=== PATIENT | male | born 1935 | race Caucasian/White ===

== ENCOUNTER 2025-09-18 05:13 | Emergency (ER) | payer MEDICARE, BC ==
[~2025-09-18] VITALS: Ht 180.3 cm; Wt 88.6 kg
[2025-09-18 05:52] VITALS: TEMP 98
[2025-09-18] MEDS ORDERED: acetaminophen 650mg rectal suppository RC STA (07:07)
[2025-09-18 07:45] LABS: MEAN PLATELET VOLUME 7.3 FL (7.4-10.4); RED CELL DISTRIBUTION WIDTH 14.4 % (11.5-14.5)
[2025-09-18 07:53] LABS: CREATININE 1.79 MG/DL (0.60-1.10); TOTAL CARBON DIOXIDE 27.0 MMOL/L (24-32); eCRCL 30 ML/MIN; eGFR 36 ML/MIN
--- NOTE | 2025-09-18 08:19 | Physician Documentation ---
History of Present Illness ~ Chief Complaint: See Chief Complaint Stated Complaint: LEFT SIDE PAIN Time Seen by MD: 07:02 OK to notify your PCP?: Yes Primary Medical Doctor: Amish Stephen Mode of Arrival: EMS HPI 89-year-old male patient with a history of left renal cell carcinoma, coronary artery disease status post CABG who lives alone who is also hard of hearing came to the emergency room left lower lateral ribcage pain particularly make it worse by cough after a fall a week ago. Patient's denies fever or chills. He is also stating that he started coughing up grayish colored sputum. He is concerned about pneumonia as well. There was no difficulty breathing. However his breathing is shallow because of deep breathing causing pain. Tetanus within 5 Years?: No Medication Reconciliation Allergies: Coded Allergies: No Known Allergies (Unverified , 07/24/15) Scheduled Lidocaine (Lidoderm), 2 PATCH TOP DAILY Scheduled PRN Hydrocodone Bit/Acetaminophen 5/325 MG ([place] 5/325 MG), 1 TAB PO Q6H PRN for pain Past Medical History Past Medical History: Coronary Artery Disease Past Surgical History: coronary bypass surgery Lives with: Spouse Lives In: Home Review of Systems ROS As stated above in the HPI, otherwise all systems are reviewed and negative. Physical Exam Vital Signs: Temperature: 98.0, Source: Oral, Heart Rate: 72, Respiratory Rate: 16, BP: 154/68, Pulse Oximetry: 94, Weight: 88.630 Oxygen Flow Rate: 0 Physical Exam Reviewed vital signs and they are well within normal range. Const: Adult female not in acute cardiopulmonary distress Head: Atraumatic Eyes: Normal Conjunctiva ENT: Normal External Ears, Nose and Mouth. Moist mucous membranes Neck: Full range of motion. No meningismus Resp: Clear to auscultation bilaterally. Normal work of breathing I do not see any bruising by the lateral aspect of the lower ribcage left side. Cardio: Regular rate and rhythm, no murmurs. Skin well perfused Abd: Soft, non-tender, non-distended. Normal bowel sounds. No rebound or guarding Skin: No petechiae or rashes. Warm and dry Back: No midline or flank tenderness Ext: No cyanosis, or edema Neuro: Awake and alert Psych: Normal Mood and Affect Progress Results/Orders Results/Orders Orders - OHNKAMRON MD Uni Ribs With Pa Chest (09/18/25 07:07) Completed Orders - OHNKAMRON MD Cbc/Diff (09/18/25 07:07) BMP (09/18/25 07:07) Uni Ribs With Pa Chest (09/18/25 07:07) Acetaminophen 325mg Tablet (Tylenol Tabl (09/18/25 07:40) Lidocaine 5% Patch (Lidoderm 5% Patch) (09/18/25 09:00) Hydrocodone/Apap 5/325mg Tab ([place] 5/32 (09/18/25 09:05) Lidocaine 5% Patch (Lidoderm 5% Patch) (09/18/25 09:20) Vital Signs 09/18/25 09/18/25 09/18/25 09/18/25 05:28 05:52 05:53 07:03 Temp 98.0 98.0 Pulse 79 67 72 Resp 16 12 12 16 B/P (MAP) 183/78 152/76 (101) 154/68 (96) Pulse Ox 96 94 94 O2 Flow Rate 0 09/18/25 09/18/25 09/18/25 08:30 09:49 16:26 Pulse 73 82 Resp 14 16 14 B/P (MAP) 131/68 (89) 142/74 Pulse Ox 97 96 O2 Flow Rate 0 Laboratory Tests Test 09/18/25 07:19 White Blood Count 5.9 Red Blood Count 3.67 L Hemoglobin 12.1 L Hematocrit 35.3 L Mean Corpuscular Volume 96.2 Mean Corpuscular Hemoglobin 32.9 H Mean Corpuscular Hemoglobin Concent 34.2 Red Cell Distribution Width 14.4 Platelet Count 193 Mean Platelet Volume 7.3 L Neutrophils (%) (Auto) 72.0 Lymphocytes (%) (Auto) 13.0 L Monocytes (%) (Auto) 14.3 H Eosinophils (%) (Auto) 0.4 Basophils (%) (Auto) 0.3 Neutrophils # (Auto) 4.2 Lymphocytes # (Auto) 0.8 L Monocytes # (Auto) 0.8 Eosinophils # (Auto) 0.0 Basophils # (Auto) 0.0 CBC Comment Sodium Level 145 Potassium Level 4.2 Chloride Level 109 H Carbon Dioxide Level 27.0 Anion Gap 9 Blood Urea Nitrogen 24 H Creatinine 1.79 H Estimated GFR/1.73 m2 36 BUN/Creatinine Ratio 13.4 Glucose Level 97 Calcium Level 8.1 L Albumin 3.1 L Chemistry Comments Medical Decision Making Additional information obtaine: old records, other Findings During the physical examination, the findings suggestive of acute life-th reatening condition such as JVD, tracheal deviation, acidotic breathing, noisy stridorous breath sounds, pulses paradoxus, muffled heart sounds, unequal breath sounds, abdominal rigidity and rebound tenderness, focal neurological deficits, cool clammy skin, severe hypotension, severe tachycardia or bradycardia are absent. Physical examination is unremarkable except for the patient's having pleuritic chest pain in the left lower ribcage. Chest x-ray shows undisplaced fracture of the left 7th and 8th ribs. No pneumothorax. No infiltrates. CBC WBC 5.9 H and H12.1 and 35.3 platelets 193 sodium 145 potassium 4.2 chloride 109 bicarb 27 BUN 24 creatinine 1.79 and glucose 97. 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 Patient does not have identifiable emergent medical condition that warrants inpatient medical care at this time. The patient is deemed safe for discharge with outpatient follow up. Differential Dx:Considerations: Include: Fracture(s), Pneumothorax, Tracheal injury, Abrasion(s), Contusion(s), Hematoma(s) Departure Disposition: 01 HOME / SELF CARE / HOMELESS Impression: Primary Impression: Left rib fracture Additional Impressions: Fracture of left eleventh rib Fracture of left seventh rib Condition: Stable Discharge Instructions: Rib Fracture, [id number] Additional Instructions: Thank you for coming to our Emergency Department today. Despite the pain take a couple of deep breaths every now and again to inflate the lungs fully. Please ask your nurse or provider if you have questions about your care today and do not leave until all your questions have been answered. Please use any medications given as directed and follow-up with your doctor (or the doctor you were referred to) in the next 1-3 days. Your primary care doctor can help to coordinate outpatient specialty care and provide authorization for specialty referral as needed. If you do not have a primary care doctor you may follow up at a [place] [facility] facility. You may also use motrin and tylenol as needed for fever and/or pain unless instructed otherwise by your provider or nurse. Indications for more urgent follow-up have been discussed, but you may return to the Emergency Department at ANY time for any worrisome or worsening symptoms. County Facilities: County Facilities: [facility]: [facility] [place] Address:[address] [place] [address] [facility]: [place] Address:[address] [place] [address] [facility]: Tele[facility]icine Address:[address] [place] [address] [facility] Address:[address] [place] [address] Registration Billing Pharmacy Referrals [facility] Address:[address] [place] [id number] Referrals: NO PRIMARY CARE PROVIDER (PCP) Prescriptions Hydrocodone Bit/Acetaminophen 5/325 MG ([place] 5/325 MG) 5 Mg/325 Mg Tablet 1 TAB PO Q6H PRN for pain, #24 TAB Prov: KAMRON FORTUNE MD 09/18/25 Lidocaine (Lidoderm) 5 % Adh..patch 2 PATCH TOP DAILY for 30 Days, #60 PATCH 0 Refills may wear up to 12 hours Prov: KAMRON FORTUNE MD 09/18/25 Signature Scribe Signature: x Attestation: KAMRON Frazire MD Sep 18, 2025 08:19
--- NOTE | 2025-09-18 08:22 | RADIOLOGY REPORT ---
EXAM: DI UNI RIBS WITH PA CHEST REASON FOR EXAM: Left lower ribs pain TECHNIQUE: Frontal view of the chest and 2 views of the left ribs are submitted for review. COMPARISON: None FINDINGS: The cardiomediastinal silhouette is mildly enlarged. There are surgical changes in the mediastinum. There is a 2 lead cardiac pacer. There is left basilar airspace disease. There is small left pleural effusion. There is no pneumothorax. There are nondisplaced acute fractures of the left 7th and 8th ribs. IMPRESSION: Nondisplaced acute fractures of the left 7th and 8th ribs. Small left pleural effusion. Left basilar airspace disease, likely atelectasis.
[2025-09-18] MEDS ORDERED: HYDR-3965 PO (09:04)
[2025-09-18] MEDS ORDERED: LIDO-52 TOP (09:04)
[2025-09-18] MEDS: HYDROcodone/acetaminophen 5mg/325mg tablet PO ONE (09:49)
[2025-09-18 16:26] VITALS: BP 142/74; PULSE 82; RESP 14; O2SAT 96
== END 2025-09-18 14:30 | disposition home or self-care (01) ==
LOC: ER 05:14
DX: S22.32XA Fracture of one rib, left side, initial encounter for closed fracture (principal); R05.9 Cough, unspecified; I25.10 Atherosclerotic heart disease of native coronary artery without angina pectoris; Z95.1 Presence of aortocoronary bypass graft; X58.XXXA Exposure to other specified factors, initial encounter; Y93.89 Activity, other specified; Y92.89 Other specified places as the place of occurrence of the external cause; Y99.8 Other external cause status
CPT/HCPCS: 36415; 71101; 80048; 85025; 99285; A6212